=== PATIENT | female | born 1990 | race Caucasian/White ===

== ENCOUNTER 2022-02-02 10:11 | Emergency (ER) | payer MEDICAID ==
[~2022-02-02] VITALS: Ht 170.2 cm; Wt 97.5 kg
[2022-02-02 10:23] VITALS: BP 133/78
--- NOTE | 2022-02-02 10:27 | NUR ---
DR VENTURA AT BEDSIDE FOR EVAL
--- NOTE | 2022-02-02 10:37 | NUR ---
Patient discharged to home in stable condition. Written and verbal after care instructions given. Patient verbalizes understanding of instruction.
== END 2022-02-02 10:37 | disposition home or self-care (01) ==
LOC: ER 10:28
DX: S01.81XD Laceration without foreign body of other part of head, subsequent encounter (principal); R51.9 Headache, unspecified; X58.XXXD Exposure to other specified factors, subsequent encounter

== ENCOUNTER 2022-12-04 14:08 | Emergency (ER) | payer MEDICAID, OTHER ==
[~2022-12-04] VITALS: Ht 170.2 cm; Wt 99.8 kg
--- NOTE | 2022-12-04 14:10 | NUR ---
RECEIVED PT 32 YRS FAMILE CAME FROM HOME C/O CHEST PAIN SINCE 100AM THIS MORNING 10/10 RESPIRATION SPONT AND EASY
--- NOTE | 2022-12-04 14:45 | NUR ---
20g lac started blood drawn and sent to lab.
[2022-12-04 15:17] LABS: BASOPHILS # (AUTO) 0.1 K/uL (0.0-0.2); BASOPHILS % (AUTO) 0.9 % (0.0-2.0); EOSINOPHILS % (AUTO) 0.7 % (0.0-6.0); HEMATOCRIT 41 % (33-45); HEMOGLOBIN 13.7 g/dL (11.5-14.8); LYMPHOCYTES # (AUTO) 2.3 K/uL (0.8-4.8); LYMPHOCYTES % (AUTO) 31.4 % (20.0-44.0); MEAN CORPUSCULAR HGB CONC 34 g/dl (31.0-36.0); MEAN CORPUSCULAR VOLUME 97 fL (82-100); MONOCYTES # (AUTO) 0.4 K/uL (0.1-1.30); MONOCYTES % (AUTO) 5.9 % (2.0-12.0); NEUTROPHILS # (AUTO) 4.6 K/uL (1.8-8.9); NEUTROPHILS % (AUTO) 61.1 % (43.0-81.0); PLATELET COUNT (AUTO) 254 K/uL (150-450); RED BLOOD CELL COUNT(AUTO) 4.17 MIL/uL (4.0-5.2); WHITE BLOOD COUNT (AUTO) 7.5 K/uL (4.3-11.0)
[2022-12-04 15:37] LABS: CALCIUM, SERUM 9.4 mg/dL (8.5-10.1); CARBON DIOXIDE 26 mmol/L (21-32); CHLORIDE 107 mmol/L (98-107); CREATININE 0.9 mg/dL (0.6-1.3); GLUCOSE 91 mg/dL (74-106); POTASSIUM 3.9 mmol/L (3.5-5.1); SODIUM SERUM 142 mmol/L (136-145); UREA NITROGEN, BLOOD 12 mg/dL (7-18)
--- NOTE | 2022-12-04 16:01 | NUR ---
WATING FOR LAB RESULT CHEST PAIN 07/21 NO SOB
--- NOTE | 2022-12-04 17:00 | NUR ---
RESTING AND COMFORTABLE AT THIS TIME
--- NOTE | 2022-12-04 17:50 | NUR ---
IV removed. Catheter intact and site benign. Pressure and 4x4 applied to site. No bleeding noted.
--- NOTE | 2022-12-04 17:56 | NUR ---
Patient discharged to home in stable condition. Written and verbal after care instructions given. Patient verbalizes understanding of instruction.
[2022-12-04 18:03] VITALS: BP 120/73
--- NOTE | 2022-12-04 18:12 | NUR ---
[facility]
== END 2022-12-04 19:00 | disposition home or self-care (01) ==
LOC: ER 14:15
DX: R07.89 Other chest pain (principal); F31.9 Bipolar disorder, unspecified; F17.200 Nicotine dependence, unspecified, uncomplicated
CPT/HCPCS: 99285; 71045; 93005; 85025; 80048; 36415; 84484; 83880; A6403